=== PATIENT | male | born 1955 | race Caucasian/White ===

== ENCOUNTER 2025-04-26 08:44 | Day surgery (SDC) | payer MEDICARE ==
[~2025-04-26] VITALS: Ht 175.3 cm; Wt 107.5 kg
[~2025-04-26 08:44] MED LIST: ASPI81TA26 PO; ATOR1TAB19 PO; METO1TAB33 PO; NORV5TAB PO; PHENYLEPHRINE 10% OPHTH SOL 5ML OD PRN
[2025-04-26] MEDS: TROPICAMIDE 1% OPHTH SOLN 15ML OD SCH (09:58)
[2025-04-26] MEDS: CYCLOPENTOLATE 1% OPHTH SOLN 2 ML BTL OD SCH (09:58)
[2025-04-26] MEDS: OFLOXACIN 0.3 % (OCUFLOX) OPTH SOL 5ML OD ONE (09:58)
[2025-04-26] MEDS: PHENYLEPHRINE 2.5% OPHTH SOL 2ML OD SCH (09:59)
[2025-04-26] MEDS: LIDOCAINE 3.5% 1 ML OPHTH TOPICAL GEL OU ONE (09:59)
[2025-04-26] MEDS ORDERED: MIDAZOLAM INJ 2 MG/2 ML VIAL As Ordered ONE (11:24)
[2025-04-26] MEDS ORDERED: GLYCOPYRROLATE INJ 0.2 MG/ML 2 ML VIAL As Ordered ONE (11:24)
[2025-04-26] MEDS: BSS IRRIG/VANCO(10MG)/TOBRA(5MG)/EPINEPH(1:1000-0.5CC)500ML BAG-ORONLY As Ordered ONE (11:26)
[2025-04-26] MEDS: CEFUROXIME 1 MG/0.1 ML INTRACAMERAL INJ As Ordered ONE (11:26)
[2025-04-26] MEDS: LIDOCAINE 1% SDV 5 ML VIAL As Ordered ONE (11:26)
[2025-04-26 11:40] VITALS: BP 146/66; TEMP 97.3; O2SAT 98
== END 2025-04-26 11:54 | disposition home or self-care (01) ==
LOC: M SDC 08:44
PROVIDERS: ATTEND Ophthalmology
DX: H25.11 Age-related nuclear cataract, right eye (principal); I25.10 Atherosclerotic heart disease of native coronary artery without angina pectoris; I10 Essential (primary) hypertension; I25.2 Old myocardial infarction; E78.00 Pure hypercholesterolemia, unspecified; Z79.899 Other long term (current) drug therapy; Z79.82 Long term (current) use of aspirin; F17.210 Nicotine dependence, cigarettes, uncomplicated; Z90.49 Acquired absence of other specified parts of digestive tract; Z88.0 Allergy status to penicillin
CPT/HCPCS: 66984; J0697; J1596; J2250; V2632

== ENCOUNTER 2025-05-24 09:57 | Day surgery (SDC) | payer MEDICARE ==
[~2025-05-24] VITALS: Ht 175.3 cm; Wt 107.0 kg
[~2025-05-24 09:57] MED LIST changes: +MIDAZOLAM INJ 2 MG/2 ML VIAL As Ordered ONE; -PHENYLEPHRINE 10% OPHTH SOL 5ML OD PRN; +PHENYLEPHRINE 10% OPHTH SOL 5ML OS PRN
[2025-05-24] MEDS: OFLOXACIN 0.3 % (OCUFLOX) OPTH SOL 5ML OS ONE (10:17)
[2025-05-24] MEDS: PHENYLEPHRINE 2.5% OPHTH SOL 2ML OS SCH (10:17)
[2025-05-24] MEDS: TROPICAMIDE 1% OPHTH SOLN 15ML OS SCH (10:17)
[2025-05-24] MEDS: LIDOCAINE 3.5% 1 ML OPHTH TOPICAL GEL OU ONE (10:17)
[2025-05-24] MEDS: CYCLOPENTOLATE 1% OPHTH SOLN 2 ML BTL OS SCH (10:17)
[2025-05-24] MEDS: CEFUROXIME 1 MG/0.1 ML INTRACAMERAL INJ As Ordered ONE (11:16)
[2025-05-24] MEDS: LIDOCAINE 1% SDV 5 ML VIAL As Ordered ONE (11:16)
[2025-05-24] MEDS: BSS IRRIG/VANCO(10MG)/TOBRA(5MG)/EPINEPH(1:1000-0.5CC)500ML BAG-ORONLY As Ordered ONE (11:17)
[2025-05-24 11:30] VITALS: BP 136/65; TEMP 97.3; O2SAT 96
== END 2025-05-24 11:45 | disposition home or self-care (01) ==
LOC: M SDC 09:57
PROVIDERS: ATTEND Ophthalmology
DX: H25.12 Age-related nuclear cataract, left eye (principal); I10 Essential (primary) hypertension; I25.10 Atherosclerotic heart disease of native coronary artery without angina pectoris; I25.2 Old myocardial infarction; E78.00 Pure hypercholesterolemia, unspecified; Z79.82 Long term (current) use of aspirin; Z79.899 Other long term (current) drug therapy; F17.210 Nicotine dependence, cigarettes, uncomplicated; Z90.49 Acquired absence of other specified parts of digestive tract; Z95.1 Presence of aortocoronary bypass graft; Z88.0 Allergy status to penicillin
CPT/HCPCS: 66984; J0697; J2250; J3010; V2632